=== PATIENT | male | born 1960 | race African-American/Black ===

== ENCOUNTER 2017-11-29 18:54 | Emergency (ER) | payer MEDICAID ==
[~2017-11-29] VITALS: Ht 182.9 cm; Wt 81.0 kg
[2017-11-29] MEDS: IBUPROFEN 600MG TABLET PO ONE (20:05)
[2017-11-29] MEDS: METHOCARBAMOL 500MG TABLET PO ONE (20:05)
[2017-11-29 20:07] VITALS: BP 128/79
== END 2017-11-29 20:20 | disposition home or self-care (01) ==
LOC: ER 19:01
DX: S39.012A Strain of muscle, fascia and tendon of lower back, initial encounter (principal); I10 Essential (primary) hypertension; F17.200 Nicotine dependence, unspecified, uncomplicated; V49.9XXA Car occupant (driver) (passenger) injured in unspecified traffic accident, initial encounter; Y93.89 Activity, other specified; Y99.8 Other external cause status; Y92.410 Unspecified street and highway as the place of occurrence of the external cause
CPT/HCPCS: 99283